=== PATIENT | female | born 1965 | race Caucasian/White ===

== ENCOUNTER 2016-12-09 17:02 | Emergency (ER) | payer SELFPAY ==
[2016-12-09] MEDS ORDERED: Ondansetron INJ* 2 MG/ML VIAL IV ONE (18:21)
[2016-12-09] MEDS ORDERED: NS 0.9% 1000 ML* 1,000 ML IV ONE (18:21)
[2016-12-09] MEDS ORDERED: Ketorolac INJ* 30 MG/ML 1 ML VIAL IV ONE (18:21)
[2016-12-09 18:58] LABS: Hematocrit 40 % (35-47); Hemoglobin 13.3 g/dl (12.0-16.0); Mean Corpuscular HGB Conc 33 g/dl (31-36); Mean Corpuscular Hemoglobin 29 pg (27-31); Mean Corpuscular Volume 88 fL (80-97); Mean Platelet Volume 8 um3 (7.4-10.4); Red Blood Count 4.56 10^6/ul (4.0-5.4); Red Cell Distribution Width 13 % (10.5-15); White Blood Count 15.2 10^3/ul (3.5-10.8)
[2016-12-09 19:06] LABS: Urine Bacteria Absent (Absent); Urine Bilirubin Negative (Negative); Urine Glucose Negative (Negative); Urine Nitrite Negative (Negative)
[2016-12-09 19:17] LABS: BUN/Creatinine Ratio 17.9 (8-20); C Reactive Protein 9.6 mg/L (< 5.00); EGFR African American 91.2 (>60); EGFR Non-African American 70.9 (>60); Globulin 3.1 g/dL (2-4); Potassium 3.9 mmol/L (3.5-5.0); Total Bilirubin 0.5 mg/dL (0.2-1.0); Total Protein 7.1 g/dL (6.4-8.9)
--- NOTE | 2016-12-09 19:27 | RAD ---
Indication: Left flank pain. CT of the abdomen and pelvis was performed without oral or IV contrast administration. Coronal and sagittal reconstructed images were obtained. The lung bases demonstrate no pleural fluid, nodules or masses. Heart is of normal size and configuration. No pericardial effusion is noted. Liver is normal in size. No focal lesions or intrahepatic ductal dilatation is noted. The gallbladder demonstrates no calcified gallstones. No pericholecystic fluid or wall thickening is identified. Pancreas demonstrates no mass or pancreatic duct dilatation. The spleen is normal in size. No adrenal masses are noted. There is a moderate degree of left hydronephrosis present. There is a calculi in the proximal left ureter measuring up to 7 mm. Perinephric infiltration of fat is noted. Parenchymal scarring is noted in the right kidney well. Calcification is noted without definite disruption. Small calcifications are present throughout the right kidney. Atherosclerotic aorta is noted. No dilated loops of bowel are noted. CT of the pelvis demonstrates no retroperitoneal or pelvic adenopathy. The colon is filled with stool. The uterus and ovaries are unremarkable. Urinary bladder is unremarkable. IMPRESSION: THERE IS A 7 MM CALCULI IN THE LEFT PROXIMAL URETER AT L3 LEVEL. MODERATE DEGREE OF LEFT HYDRONEPHROSIS IS NOTED. OTHER CALCIFICATIONS ARE NOTED IN THE SCARRED UPPER POLE OF LEFT KIDNEY. THERE IS ATROPHY OF THE UPPER POLE OF THE RIGHT KIDNEY IS 12. ATHEROSCLEROTIC AORTA IS NOTED.
[2016-12-09] MEDS ORDERED: Levofloxacin 500 MG IVPREMIX(* 500 MG/100 ML BAG IVPB ONE (20:04)
[2016-12-09 21:54] VITALS: BP 116/77
--- NOTE | 2016-12-10 07:59 | ED ---
Jazmine Estrada Matthew, scribed for Catracho Rankin MD on 12/09/16 at 1835 . Abdominal Pain/Female - HPI Summary HPI Summary: A 51 y/o female presents to the ED with constant left flank pain since yesterday. The pain is rated 7-8/10 in severity and does not radiate. Associated symptoms include nausea.The patient has a Hx of kidney stones. The patient smokes. No alcohol. She reports no FHx. - History of Current Complaint Chief Complaint: EDFlankPain Stated Complaint: NAUSEA/LOWER BACK PAIN Time Seen by Provider: 12/09/16 18:17 Hx Obtained From: Patient ?: No Onset/Duration: Lasting Days, Still Present Timing: Constant Severity Initially: Moderate Severity Currently: Moderate Pain Intensity: 7 Pain Scale Used: 0-10 Numeric Location: Flank - LT Radiates: No Associated Signs and Symptoms: Positive: Nausea Allergies/Adverse Reactions: Allergies Allergy/AdvReac Type Severity Reaction Status Date / Time No Known Allergies Allergy Verified 12/09/16 17:08 Home Medications: Home Medications NK [No Home Medications Reported] 12/09/16 [History Confirmed 12/09/16] PMH/Surg Hx/FS Hx/Imm Hx Endocrine/Hematology History: Denies: Hx Diabetes History: Reports: Hx Kidney Stones Infectious Disease History: No Infectious Disease History: Denies: Traveled Outside the [place] in Last 30 Days - Family History Known Family History: Negative: Cardiac Disease, Hypertension, Diabetes - Social History Alcohol Use: None Hx Substance Use: No Substance Use Type: Reports: None Hx Tobacco Use: Yes Smoking Status (MU): Light Every Day Tobacco Smoker Type: Cigarettes Review of Systems Constitutional: Negative Eyes: Negative ENT: Negative Cardiovascular: Negative Respiratory: Negative Positive: Abdominal Pain - LT Flank Pain, Nausea Genitourinary: Negative Musculoskeletal: Negative Skin: Negative Neurological: Negative Psychological: Normal All Other Systems Reviewed And Are Negative: Yes Physical Exam - Summary Physical Exam Summary: VITAL SIGNS: Reviewed. GENERAL: Patient is a well developed and nourished female who is uncomfortable secondary to right flank pain. Patient is not in any acute respiratory distress. HEAD AND FACE: Normocephalic and atraumatic. EYES: PERRLA, EOMI x 2, No injected conjunctiva. EARS: Hearing grossly intact. Ear canals and tympanic membranes are WNL. MOUTH: Oropharynx within normal limits. NECK: Supple, trachea is midline, no adenopathy, no JVD. CHEST: Symmetric, no tenderness at palpation LUNGS: Clear to auscultation bilaterally. No wheezing or crackles. CVS: RRR,, S1 and S2 present, no murmurs or gallops appreciated. ABDOMEN: Soft, non-tender. No signs of distention. Positive bowel sounds. No rebound no guarding, and no masses palpated. No abdominal bruit or pulsations. positive Right CVAT's EXTREMITIES: FROM in all major joints, no edema, no cyanosis or clubbing. NEURO: Alert and oriented x 3. No acute neurological deficits. Speech is normal. SKIN: Dry and warm Triage Information Reviewed: Yes Vital Signs On Initial Exam: Initial Vitals Temp Pulse Resp BP Pulse Ox 98.2 F 75 16 148/89 100 12/09/16 17:09 12/09/16 17:09 12/09/16 17:09 12/09/16 17:09 12/09/16 17:09 Vital Signs Reviewed: Yes Diagnostics - Vital Signs Vital Signs Temp Pulse Resp BP Pulse Ox 12/09/16 17:09 98.2 F 75 16 148/89 100 - Laboratory Result Diagrams: 12/09/16 18:35 12/09/16 18:35 Lab Statement: Any lab studies that have been ordered have been reviewed, and results considered in the medical decision making process. Abdominal Pain Fem Course/Dx - Course Course Of Treatment: A 51 y/o female presents to the ED with constant left flank pain since yesterday. The pain is rated 7-8/10 in severity and does not radiate. Associated symptoms include nausea.The patient has a Hx of kidney stones. The patient smokes. No alcohol. She reports no FHx. Patient has a c/o of left flank pain. The patient has positive LT CVA tenderness. The patient is awaiting blood work and CT A/P to r/o kidney stones. The patient will be signed out to Dr. Edgar to follow-up with the test results and CT results. The patient was given IV fluids, Toradol, and Zofran. She is hemodynamically stable and A&Ox3. - Diagnoses Differential Diagnosis: Positive: Constipation, Renal Colic, Urinary Tract Infection Provider Diagnoses: Renal colic on left side Discharge - Discharge Plan Condition: Stable Disposition: HOME Discharge Disposition Comment: The patient is signed out to Dr. Edgar pending lab results and CT A/P. Prescriptions: Levofloxacin TAB* [Levaquin 500 Tab*] 500 mg PO DAILY #7 tab Patient Education Materials: Kidney Stones (ED), Renal Colic (ED) Referrals: No Primary Care Phys,NOPCP [Primary Care Provider] - Jose A Silverman MD [Medical Doctor] - As Soon As Possible Additional Instructions: Please follow up with Dr. Silverman tomorrow regarding your visit to the emergency department today. Return to the emergency department with any new or recurring symptoms. The documentation as recorded by the Jazmine shaw Matthew accurately reflects the service I personally performed and the decisions made by , Catracho Rankin MD.
== END 2016-12-09 21:53 | disposition home or self-care (01) ==
LOC: ED 17:02
DX: N23 Unspecified renal colic (principal); R10.84 Generalized abdominal pain; R11.0 Nausea; F17.210 Nicotine dependence, cigarettes, uncomplicated
CPT/HCPCS: 36415; 74176; 80053; 81003; 81015; 82150; 83605; 83690; 84702; 85025; 86140; 87086; 99283; J1885; J1956; J2405

== ENCOUNTER → 2016-12-11 06:38 | Day surgery (SDC) | payer BC ==
--- NOTE | 2016-12-10 16:53 | HP ---
DATE OF ADMISSION: 12/11/2016. HISTORY OF PRESENT ILLNESS: Ms. Fan is a 51-year-old white female who is admitted with a left proximal ureteral calculus for cystoscopy and placement of left ureteral stent on 12/11/2016, and will be readmitted on 12/14/2016 for shockwave lithotripsy of Left renal calculus and possible Lt stent removal. Ms. Fan is a known stone former and had required shockwave lithotripsy of a left renal calculus in 2001. She has done well and has been asymptomatic until one week ago when she started having episodes of left flank pain. Some of the episodes were associated with nausea. She presented to the emergency room on 12/09/2016 with severe symptoms of left renal colic. Her urine analysis showed microscopic hematuria and there was some pyuria. She did not have any fever or chills. Noncontrast CT of the abdomen and pelvis showed a 1cm calculus in the proximal left ureter just distal to the ureteropelvic junction. There was associated mild hydronephrosis. No other abnormalities were noted. The patient was managed conservatively in the emergency room and was sent home on Levaquin and pain medications. She was evaluated the next day in my office. She continued to have pain, but was manageable. Her urine analysis in my office was negative. She is admitted today for cystoscopy and placement of a left ureteral stent, followed three days later by shockwave lithotripsy of the left renal calculus and possible removal of the left ureteral stent with successful fragmentation of the stone. PAST MEDICAL HISTORY AND SYSTEM REVIEW: She is a chronic heavy smoker. She has mild symptoms of emphysema. She is hypertensive . She denies any cardiac or pulmonary diseases or symptoms. She denies any previous abdominal surgeries. MEDICATIONS: She is on no chronic medications. ALLERGIES: She denies any allergies to medications. PHYSICAL EXAMINATION GENERAL: Pleasant white female who looks older than her age and who is in moderate pain. VITAL SIGNS: Blood pressure 120/80, pulse 70. LUNGS: Clear. HEART: Regular and rhythmic, no murmurs. ABDOMEN: Soft. There is tenderness in the left flank and on bimanual examination of the left kidney. The rest of the abdominal exam is normal. LABORATORY DATA: Her urine analysis shows +2 blood, negative otherwise. IMPRESSION: 1. A 1 cm calculus at the left ureteropelvic junction with recurrent episodes of left renal colic and a positive urine analysis for infection, being treated with Levaquin. 2. History of chronic smoking. PLAN: Considering the persistent severe pain, and nausea, the plan is for cystoscopy and placement of a left ureteral stent followed 3 days (when the mobile SWL unit is available) by shockwave lithotripsy of the left renal calculus with possible removal of the stent if good fragmentation of the stone. I discussed the above plans in detail with the patient. All her questions were answered. CC: Dr. Eve Rios * [id number]/[facility] #: [id number] MTDD
[~2016-12-11 06:38] MED LIST: Dexamethasone IV* 4 MG/ML 1 ML (4 MG) ONE; Iohexol 180 (CONTRAST) 10 ML SDV IV ONE; Lidocaine 2% PF* 5 ML VIAL ONE; Ondansetron INJ* 2 MG/ML VIAL IV PRN; Ondansetron INJ* 2 MG/ML VIAL ONE; Propofol* 10 MG/ML 20 ML BTL IV PUSH ONE; Sodium Citrate/Citric Acid* 15 ML UDC ONE; cefTRIAXone VIAL(*) 1,000 MG VIAL ONE; fentaNYL* 50 MCG/ML 2 ML VIAL (100 MCG VIAL) IV PRN; fentaNYL* 50 MCG/ML 2 ML VIAL (100 MCG VIAL) ONE; oxyCODONE/Acetamin 5/325 MG* TAB ONE
--- NOTE | 2016-12-11 08:53 | RAD ---
INDICATION: Left renal calculus COMPARISONS: December 09, 2016 CT TECHNIQUE: Fluoroscopy was provided for a retrograde pyelogram and stent placement. Total fluoroscopy time is: 16 seconds FINDINGS: Contrast is noted within the renal collecting system. A ureteral stent is noted. IMPRESSION: FLUOROSCOPY WAS PROVIDED FOR A RETROGRADE PYELOGRAM AND STENT PLACEMENT CPT II Codes: 6045F
[2016-12-11 09:49] VITALS: BP 123/82
--- NOTE | 2016-12-11 10:05 | RAD ---
HISTORY: Status post left stent placement COMPARISONS: CT dated December 09, 2016 VIEWS: Frontal views of the abdomen. FINDINGS: BOWEL: There is a nonobstructive bowel gas pattern. There is a large amount of stool within the colon. CALCULI: A left ureteral stent is noted BONES AND SOFT TISSUES: There are no osseous abnormalities. OTHER FINDINGS: The lung bases are clear. There is no subphrenic gas. IMPRESSION: LEFT URETERAL STENT
--- NOTE | 2016-12-12 01:52 | OP ---
OPERATIVE REPORT: DATE OF OPERATION: 12/11/16 DATE OF : 61 SURGEON: Jose A Silverman MD ANESTHESIOLOGIST: Kaushik Murphy DO. ANESTHESIA: General. PRE-OPERATIVE DIAGNOSIS: Left renal calculus (ureteropelvic junction). POST-OPERATIVE DIAGNOSIS: Left renal calculus (ureteropelvic junction). OPERATIVE PROCEDURE: 1. Cystoscopy. 2. Left retrograde pyelography and placement of left ureteral stent (6-Georgian). INDICATION FOR PROCEDURE: Ms. Fan is a 51-year-old white female who presented to the emergency room 3 days ago with symptoms of left renal colic and was noted to have 1 cm calculus at the left ureteropelvic junction. There was associated moderate hydronephrosis. The patient presented to my office yesterday for followup and was in persistent pain and nausea. She had been on Levaquin because of positive urinalysis for infection. She did not have any fever or chills. The patient is brought in today for placement of a left ureteral stent in preparation for definitive treatment of the stone. 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 There were no suspicious bladder lesions seen. The ureteral orifices abnormal. At fluoroscopy, a 1-cm radiopaque calculus was noted at the level of the ureteropelvic junction. The stone was impacted. There was resistance to the introduction of the guidewire into the kidney. Retrograde pyelography showed moderate left hydronephrosis. DESCRIPTION OF PROCEDURE: After successful general anesthesia, the patient was placed in the lithotomy position and was prepped and draped for a cystoscopy. Cystoscopy was then performed. The bladder was inspected and the above findings were noted. A flexible tip guidewire was then introduced into the left orifice and after several attempts, and with fluoroscopic guidance, was successfully introduced into the area of the renal pelvis. A size 5-Georgian open-ended catheter was then fed on top of the guidewire and positioned in the proximal ureter just proximal to the stone. Retrograde pyelography was performed demonstrating the hydronephrosis and showing no extravasation. The guidewire was then reintroduced and positioned inside the renal pelvis. A size 6-Georgian ureteral stent was fed on top of the guidewire and positioned with the proximal end coiling in renal pelvis and the distal end coiling inside the bladder. The bladder was then emptied and the cystoscope was removed. Pelvic examination was done showing no pelvic masses and moderate cystocele. The patient tolerated the procedure well and left the operating room in good condition. The plan is to obtain a KUB postoperatively to recheck on the position of the stone. The patient will be brought back in 3 days for shockwave lithotripsy of the left renal calculus and if there is good fragmentation of the stone, for stent removal. [id number]/[facility] #: [id number] MTDLissa
== END | disposition home or self-care (01) ==
LOC: OR 06:38
PROVIDERS: ATTEND Urology
DX: N13.2 Hydronephrosis with renal and ureteral calculous obstruction (principal); F17.210 Nicotine dependence, cigarettes, uncomplicated; I10 Essential (primary) hypertension
CPT/HCPCS: 36415; 74000; 74420; 85610; A9270-GY; C1876; J0696; J1100; J2405; J2704; J3010

== ENCOUNTER 2016-12-14 10:35 | Day surgery (SDC) | payer BC ==
[~2016-12-14 10:35] MED LIST changes: +Buffered Lidocaine 1% SYRIN* 3 ML/SYR SYRINGE INTRADERM ONE; -Dexamethasone IV* 4 MG/ML 1 ML (4 MG) ONE; +Famotidine IV* 10 MG/ML 2 ML (20 mg) IV ONE; -Iohexol 180 (CONTRAST) 10 ML SDV IV ONE; -Lidocaine 2% PF* 5 ML VIAL ONE; +Metoclopramide TAB* 10 MG PO ONE; -Ondansetron INJ* 2 MG/ML VIAL IV PRN; -Ondansetron INJ* 2 MG/ML VIAL ONE; -Propofol* 10 MG/ML 20 ML BTL IV PUSH ONE; -Sodium Citrate/Citric Acid* 15 ML UDC ONE; -cefTRIAXone VIAL(*) 1,000 MG VIAL ONE; +cefTRIAXone VIAL(*) 1,000 MG in NS 0.9% 50 ML* 50 ML IVPB ONE; -fentaNYL* 50 MCG/ML 2 ML VIAL (100 MCG VIAL) IV PRN; -fentaNYL* 50 MCG/ML 2 ML VIAL (100 MCG VIAL) ONE; -oxyCODONE/Acetamin 5/325 MG* TAB ONE
[2016-12-14] MEDS ORDERED: Famotidine IV* 10 MG/ML 2 ML (20 mg) ONE (12:06)
[2016-12-14] MEDS ORDERED: Metoclopramide TAB* 10 MG ONE (12:06)
[2016-12-14] MEDS ORDERED: Ondansetron INJ* 2 MG/ML VIAL ONE (13:00)
[2016-12-14] MEDS ORDERED: Propofol* 10 MG/ML 20 ML BTL IV PUSH ONE (13:00)
[2016-12-14] MEDS ORDERED: Ketorolac INJ* 30 MG/ML 1 ML VIAL ONE (13:00)
[2016-12-14] MEDS ORDERED: fentaNYL* 50 MCG/ML 2 ML VIAL (100 MCG VIAL) ONE (13:00)
[2016-12-14] MEDS ORDERED: Dexamethasone IV* 4 MG/ML 1 ML (4 MG) ONE (13:00)
[2016-12-14] MEDS ORDERED: Lidocaine 2% PF* 5 ML VIAL ONE (13:00)
[2016-12-14] MEDS ORDERED: Midazolam* 1 MG/ML 5 ML VIAL (5 MG) ONE (13:01)
[2016-12-14] MEDS ORDERED: KETAMINE HCL* 50 MG/ML 10 ML VIAL ONE (13:01)
[2016-12-14] MEDS ORDERED: fentaNYL* 50 MCG/ML 2 ML VIAL (100 MCG VIAL) IV PRN (13:52)
[2016-12-14] MEDS ORDERED: Ondansetron INJ* 2 MG/ML VIAL IV PRN (13:52)
[2016-12-14] MEDS ORDERED: oxyCODONE/Acetamin 5/325 MG* TAB PO PRN (13:52)
[2016-12-14 14:55] VITALS: BP 142/84
--- NOTE | 2016-12-15 10:44 | OP ---
OPERATIVE REPORT: DATE OF OPERATION: 12/14/16 DATE OF : 61 SURGEON: Dr. Silverman ANESTHESIA: General. ANESTHESIOLOGIST: Greg Horton MD PRE-OP DIAGNOSES: 1. Left renal calculus (1 cm). 2. Status post placement left ureteral stent. POST-OP DIAGNOSES: 1. Left renal calculus (1 cm). 2. Status post placement left ureteral stent. OPERATIVE PROCEDURES: 1. Shockwave lithotripsy of left renal calculus (1 cm). 2. Cystoscopy and removal of left ureteral stent. INDICATIONS FOR PROCEDURE: Mrs. Fan is a 51-year-old white female who presented last week with symptoms of left renal colic and was noted to have a 1 cm calculus at the left ureteropelvic junction. She was taken to the operating room 3 days ago and had urgent placement of left ureteral stent with complete resolution of her symptoms. Postoperative KUB showed the stone to have migrated into a mid pole calyx of the left kidney. She is now admitted for definitive treatment of the stone. PATHOLOGY: At fluoroscopy, the stent was in good position. A 1 cm radiopaque calculus was noted in a mid to lower pole calyx of the left kidney. No other abnormal calcifications were noted. DESCRIPTION OF PROCEDURE: After successful general anesthesia, the patient was placed in the supine position on the shockwave lithotripsy table. The left renal calculus was visualized in both the PA and oblique x-ray views and position of the patient and the generator were adjusted to have the stone in the focus of the shock waves. A total of 1,700 shocks were then delivered at a rate of 90 shocks per minute. A 3- minute break was taken after the initial 300 shocks. The proper positioning and fragmentation of the stone were monitored periodically. At the completion of the treatment, there seemed to be very good fragmentation of the stone. Decision was made to remove the stent. The patient was placed in the frog-leg position and and prepped and draped for a cystoscopy. Cystoscopy was performed and the left stent was pulled out intact. The patient tolerated the procedure well and left the operating room in good condition. [id number]/[facility] #: [id number] MTDD
== END 2016-12-14 14:55 | disposition home or self-care (01) ==
LOC: OR 10:35
PROVIDERS: ATTEND Urology
DX: N20.0 Calculus of kidney (principal); I10 Essential (primary) hypertension; F17.200 Nicotine dependence, unspecified, uncomplicated
CPT/HCPCS: 36415; 85730; A9270-GY; J0696; J1100; J1885; J2250; J2405; J2704; J3010